=== PATIENT | male | born 1975 | race Native Hawaiian/Other Pacific Islander ===

== ENCOUNTER 2020-05-27 07:05 | Emergency (ER) | payer OTHER ==
[~2020-05-27] VITALS: Ht 175.3 cm; Wt 113.4 kg
[2020-05-27 08:12] VITALS: BP 140/90; TEMP 98.4
== END 2020-05-27 08:12 | disposition home or self-care (01) ==
LOC: ED 07:05
DX: J06.9 Acute upper respiratory infection, unspecified (principal); I10 Essential (primary) hypertension; F17.210 Nicotine dependence, cigarettes, uncomplicated
CPT/HCPCS: 87651; 99282

== ENCOUNTER 2021-03-29 06:14 | Emergency (ER) | payer OTHER ==
[~2021-03-29] VITALS: Ht 175.3 cm; Wt 113.4 kg
[2021-03-29 06:14] VITALS: TEMP 96.9
[2021-03-29 06:25] VITALS: BP 194/116
[2021-03-29 06:43] LABS: PLATELET COUNT 441 K/uL (142-355)
[2021-03-29 06:54] LABS: POTASSIUM 3.1 mmol/L (3.6-5.2)
[2021-03-29 06:57] LABS: PARTIAL THROMBOPLASTIN TIME 23.6 SECONDS (24.5-33.6)
== END 2021-03-29 09:25 | disposition expired ==
LOC: ED 06:14
PROVIDERS: Hospitalist
PROC: 5A12012 Performance of Cardiac Output, Single, Manual (ICD-10-PCS; principal; 2021-03-29)
PROC: 0BH17EZ Insertion of Endotracheal Airway into Trachea, Via Natural or Artificial Opening (ICD-10-PCS; 2021-03-29)
DX: I24.9 Acute ischemic heart disease, unspecified (principal); I21.3 ST elevation (STEMI) myocardial infarction of unspecified site; I46.9 Cardiac arrest, cause unspecified; Z20.822 Contact with and (suspected) exposure to COVID-19; F17.210 Nicotine dependence, cigarettes, uncomplicated
CPT/HCPCS: 31500; 36415; 80053; 82550; 82553; 83880; 84484; 85027; 85610; 85730; 87635; 92950; 93005; 96360; 96375; 96376; 99285; C1726; J0330; J1815; J2250; J2270; J2405; J2704; J3490; U0003